=== PATIENT | female | born 1960 | race Caucasian/White ===

== ENCOUNTER → 2018-10-17 10:32 | Outpatient (CLI) | payer OTHER, SELFPAY ==
--- NOTE | 2018-10-17 10:36 | BI_ITS ---
MAMMOGRAPHY - BILATERAL SCREENING 3-D TRACEE SYNTHESIS REASON FOR EXAM: Female, 58 years old. Bilateral Screening 3-D tomosynthesis PERTINENT HISTORY: History of benign ultrasound-guided biopsy for fibroadenoma in 2017. 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 History of breast cancer in maternal grandmother. TECHNIQUE: 2-D mammograms and 3-D Tracee synthesis of the breast (s) were performed. CAD was performed. COMPARISON: March 23, 2017, December 04, 2014 FINDINGS: The breast composition is almost entirely fat. Scattered benign calcifications are stable.. No dense spiculated masses or suspicious microcalcifications are identified. No architectural distortion is identified. There is no skin thickening or retraction. There has been no significant change since the prior study. BI/SCREENING MAMM (CAD), BILAT IMPRESSION: No mammographic signs of malignancy. Routine yearly mammograms recommended. ASSESSMENT CATEGORY: BIRADS Category 2: Benign. A letter regarding these results will be sent to the patient by the facility within 30 days. FOLLOW UP RECOMMENDATION: Yearly follow up mammogram recommended. (A) Approximately 10% of breast cancers are not detected by mammography. A normal mammogram should not delay biopsy of a clinically suspicious abnormality. Electronically Signed: Chevy Alcaraz MD at 17:49 EDT , Service support ,
== END ==
PROVIDERS: Referring Provider Obstetrics & Gynecology; Visit Provider Obstetrics & Gynecology
DX: Z12.31 Encounter for screening mammogram for malignant neoplasm of breast (principal)
CPT/HCPCS: 77063; 77067

== ENCOUNTER → 2020-11-11 10:47 | Outpatient (CLI) | payer SELFPAY ==
--- NOTE | 2020-11-11 10:57 | BI_ITS ---
MAMMOGRAPHY - BILATERAL SCREENING REASON FOR EXAM: Female, 60 years old. Routine annual screening examination. PERTINENT HISTORY: Sister with breast cancer. TECHNIQUE: Digital bilateral breast tracee (3D mammographic acquisition) in CC and MLO projections. 2-D mediolateral oblique (MLO) and craniocaudad (CC) views of both breasts were obtained. CAD: Full Field Digital Mammography with Computer Added Detection was performed. COMPARISON: Comparison is made with prior study dated 10/17/2018 and 03/23/2017. FINDINGS: Breast Composition: The breasts are heterogeneously dense, which may obscure small masses. Focus of microcalcifications in the upper lateral aspect of the right breast. The patient will be recalled for additional views including magnification spot views. No other significant abnormalities are identified. BI/SCRN MAMM (CAD)W/TRACEE BILAT IMPRESSION: Focus of microcalcifications in the upper lateral aspect of the right breast as described. The patient will be recalled for additional views including magnification spot views. Recall Side: Right Breast ASSESSMENT CATEGORY: BIRADS Category 0: Incomplete. Need additional imaging evaluation. A letter regarding these results will be sent to the patient by the facility within 30 days. Approximately 10% of breast cancers are not detected by mammography. A normal mammogram should not delay biopsy of a clinically suspicious abnormality. [id number] Electronically Signed: Donny Phillip MD at 12:09 EDT , Service support ,
== END ==
PROVIDERS: PCP Family Medicine; Referring Provider Obstetrics & Gynecology; Visit Provider Obstetrics & Gynecology
DX: Z12.31 Encounter for screening mammogram for malignant neoplasm of breast (principal)
CPT/HCPCS: 77063; 77067

== ENCOUNTER → 2020-11-14 12:10 | Outpatient (CLI) | payer SELFPAY ==
--- NOTE | 2020-11-14 12:16 | BI_ITS ---
MAMMOGRAPHY - UNILATERAL DIAGNOSTIC: RIGHT BREAST REASON FOR EXAM: Female, 60 years old. Abnormal screening mammogram. Microcalcifications. PERTINENT HISTORY: TECHNIQUE: Magnification spot views of the right breast were obtained. CAD: Full Field Digital Mammography with Computer Added Detection was performed. COMPARISON: Comparison is made with prior mammogram dated 11/11/2020. FINDINGS: Breast Composition: The breasts are heterogeneously dense, which may obscure small masses. The cluster of microcalcifications are seen in the upper lateral aspect of the right breast. A biopsy is recommended. No other significant abnormalities are identified. BI/DIAG MAMM W/CAD, UNILAT IMPRESSION: Cluster of microcalcifications persist. Biopsy is recommended. ASSESSMENT CATEGORY: BIRADS Category 4: Suspicious - Biopsy Should Be Considered. A letter regarding these results will be sent to the patient by the facility within 30 days. Approximately 10% of breast cancers are not detected by mammography. A normal mammogram should not delay biopsy of a clinically suspicious abnormality. Electronically Signed: Donny Phillip MD at 12:58 EDT , Service support ,
== END ==
PROVIDERS: PCP Family Medicine; Referring Provider Obstetrics & Gynecology; Visit Provider Obstetrics & Gynecology
DX: R92.0 Mammographic microcalcification found on diagnostic imaging of breast (principal)
CPT/HCPCS: 77065

== ENCOUNTER → 2020-12-25 08:51 | Outpatient (CLI) | payer SELFPAY ==
[2020-11-28 12:58] VITALS: BMI 26.6
--- NOTE | 2020-12-25 07:15 | BRBX_PTH ---
PATIENT: MAYLIN KLEIN LOC: [facility] U#:[id number] AGE/SX: 64/F ROOM: RE12/25/[address]: Dr. Ian Escobar MD : 1960 BED: DIS: SPEC #: [id number] RECD: 12/25/20 10:07 STATUS: GEO KACY #: [id number] VAN: 12/25/20 07:[address]: Ian Escobar DEPT: SURGICAL PATHOLOGY RECD BY: Shyla Cook ENTERED: 12/25/20 11:08 SP TYPE: BREAST BX OTHR DR: Dr. Ace Simental MD Tissues: Right breast, NOS Procedures: Surgery Specimen Level IV HEADER OPERATION: Right stereotactic breast biopsy PRE-OP DIAGNOSIS: Right breast upper lateral microcalcifications TISSUE SUBMITTED: Right breast core tissue ISCHEMIC TIME: 1 minute FIXATION TIME: 10 hours MICROSCOPIC DIAGNOSIS Right breast, upper lateral, stereotactic core biopsy: Fibrocystic change with associated Banal microcalcifications. No evidence of malignancy. AM:leonora 12/26/2020 MICROSCOPIC DESCRIPTION Slides are reviewed. GROSS DESCRIPTION Received is one container labeled with the patient's name and not further designated. The specimen consists of multiple irregular fragments of dewitt-yellow soft tissue that in aggregate measure 3 x 3 x 0.2 cm. The specimen is totally submitted in two cassettes. / AM:leonora 12/25/20 TC:5 CPT: 43810
--- NOTE | 2020-12-25 09:31 | PCM.OPRPT ---
Problems Associated Problem List Diagnoses (1) Microcalcification of right breast on mammogram: Report of Operation Date of Procedure: 12/25/20 Pre-Operative Diagnosis: Microcalcifications of the right breast Post-Operative Diagnosis: Same Surgery/Procedure Performed:: Stereotactic guided core needle biopsy of the right breast with clip placement Specimen's removed: Right breast biopsy Description of Procedure: The patient was consented and then the patient was placed in the stereotactic table with right breast and the compression plate. [employer] views were obtained and the microcalcifications were centered. Stereotactic views were then obtained and the microcalcifications were localized. The skin was then prepped and injected with local anesthetic. A small yamileth in the skin was made with a scalpel. The needle was placed into the breast and fired. Stereotactic views were obtained to make sure that the needle was still in appropriate position. Core needle biopsies were then obtained and the specimen was x-rayed and did contain the microcalcifications. Next the clip was placed into the breast and the needle was removed. Stereotactic views were obtained to make sure that the clip was in adequate position. The incision was then closed with a Steri-Strip and bandage and the patient tolerated the procedure well.
== END ==
PROVIDERS: PCP Family Medicine; Referring Provider Surgery; Visit Provider Surgery
DX: N60.11 Diffuse cystic mastopathy of right breast (principal)
CPT/HCPCS: 19081; 88305; J7050; A4648

== ENCOUNTER → 2021-06-02 09:31 | Outpatient (CLI) | payer SELFPAY ==
--- NOTE | 2021-06-02 09:36 | BI_ITS ---
MAMMOGRAPHY - UNILATERAL DIAGNOSTIC: RIGHT BREAST REASON FOR EXAM: Female, 60 years old. Six-month follow-up for right breast biopsy. PERTINENT HISTORY: Sister with breast cancer. TECHNIQUE: Digital unilateral breast estefania (3D mammographic acquisition) in the CC and MLO projections. 2-D mediolateral oblique (MLO) and craniocaudad (CC) views of both breasts were obtained. CAD: Full Field Digital Mammography with Computer Added Detection was performed. COMPARISON: Comparison is made with prior mammogram dated 11/14/2020 and 11/11/2020. FINDINGS: Breast Composition: The breasts are heterogeneously dense, which may obscure small masses. There are no dominant masses or suspicious calcifications. A tissue clip marker is seen in the upper anterior slightly lateral aspect of the right breast at the biopsy site. There has been a decrease in the number of microcalcifications. No other significant abnormalities are identified. BI/DIAG MAMM W/CAD, UNILAT IMPRESSION: Status post biopsy of the microcalcifications in the upper lateral aspect of the right breast.. One year follow-up mammogram recommended. (A) ASSESSMENT CATEGORY: BIRADS Category 2: Benign. A letter regarding these results will be sent to the patient by the facility within 30 days. Approximately 10% of breast cancers are not detected by mammography. A normal mammogram should not delay biopsy of a clinically suspicious abnormality. Electronically Signed: Donny Phillip MD at 12:55 EDT , Service support ,
== END ==
PROVIDERS: PCP Family Medicine; Visit Provider Surgery
DX: R92.0 Mammographic microcalcification found on diagnostic imaging of breast (principal); Z80.3 Family history of malignant neoplasm of breast
CPT/HCPCS: 77061; 77065; G0279

== ENCOUNTER → 2022-09-06 | Outpatient (CLI) | payer SELFPAY ==
--- NOTE | 2022-09-06 13:37 | BI_ITS ---
MAMMOGRAPHY - BILATERAL SCREENING REASON FOR EXAM: Female, 62 years old. Routine annual screening examination. PERTINENT HISTORY: Sister with breast cancer. History of prior right stereotactic breast biopsy. TECHNIQUE: Digital bilateral breast tracee (3D mammographic acquisition) in the CC and MLO projections. 2-D mediolateral oblique (MLO) and craniocaudad (CC) views of both breasts were obtained. CAD: Full Field Digital Mammography with Computer Added Detection was performed. COMPARISON: Comparison is made with prior study dated 11/11/2020 and 11/14/2020. FINDINGS: Breast Composition: The breasts are heterogeneously dense, which may obscure small masses. There are no dominant masses or suspicious calcifications. A tissue clip marker is seen in the upper slightly lateral aspect of the right breast. The previously seen calcifications are not seen at this time. No other significant abnormalities are identified. There has been no significant change since the prior study. BI/SCRN MAMM (CAD)W/TRACEE BILAT IMPRESSION: Stable bilateral screening mammogram. Yearly follow-up mammogram recommended. (A) ASSESSMENT CATEGORY: BIRADS Category 2: Benign. A letter regarding these results will be sent to the patient by the facility within 30 days. Approximately 10% of breast cancers are not detected by mammography. A normal mammogram should not delay biopsy of a clinically suspicious abnormality. [id number] Electronically Signed: Donny Phillip MD at 14:45 EST ,
== END | disposition home or self-care (01) ==
LOC: OPBI 13:32
PROVIDERS: PCP Family Medicine; Referring Provider Obstetrics & Gynecology; Visit Provider Obstetrics & Gynecology
DX: Z12.31 Encounter for screening mammogram for malignant neoplasm of breast (principal)
CPT/HCPCS: 77063; 77067

== ENCOUNTER → 2024-06-06 | Outpatient (CLI) | payer SELFPAY ==
--- NOTE | 2024-06-06 10:12 | BI_ITS ---
MAMMOGRAPHY - BILATERAL SCREENING REASON FOR EXAM: Female, 63 years old. Routine annual screening examination. PERTINENT HISTORY: Sister with breast cancer. Prior right stereotactic breast biopsy. TECHNIQUE: Digital bilateral breast tracee (3D mammographic acquisition) in the CC and MLO projections. 2-D mediolateral oblique (MLO) and craniocaudad (CC) views of both breasts were obtained. CAD: Full Field Digital Mammography with Computer Added Detection was performed. COMPARISON: Comparison is made with prior study if every 2022 and November 14, 2020. FINDINGS: Breast Composition: The breasts are heterogeneously dense, which may obscure small masses. There are no dominant masses or suspicious calcifications. A tissue clip marker is once again seen in the upper slightly outer aspect of the right breast. No other significant abnormalities are identified. There has been no significant change since the prior study. BI/SCRN MAMM (CAD)W/TRACEE BILAT IMPRESSION: Stable bilateral screening mammogram. Yearly follow-up mammogram recommended. (A) ASSESSMENT CATEGORY: BIRADS Category 2: Benign. A letter regarding these results will be sent to the patient by the facility within 30 days. Approximately 10% of breast cancers are not detected by mammography. A normal mammogram should not delay biopsy of a clinically suspicious abnormality. [id number] Electronically Signed: Donny Phillip MD at 11:28 EST ,
== END | disposition home or self-care (01) ==
LOC: OPBI 10:08
PROVIDERS: PCP Family Medicine; Referring Provider Obstetrics & Gynecology; Visit Provider Obstetrics & Gynecology
DX: Z12.31 Encounter for screening mammogram for malignant neoplasm of breast (principal)
CPT/HCPCS: 77063; 77067

== ENCOUNTER → 2025-06-07 | Outpatient (CLI) | payer SELFPAY ==
--- NOTE | 2025-06-07 10:58 | BI_ITS ---
EXAM: SCRN MAMM (CAD)W/TRACEE BILAT DATE: 06/07/2025 CLINICAL HISTORY: F, Age 64 y/o , SCREEN TECHNIQUE: Procedure Code: [id number] Modality: MG Procedure: SCRN MAMM (CAD)W/TRACEE BILAT COMPARISON: Prior exam(s) dated 06/06/2024, 09/06/2022, 06/02/2021. FINDINGS: TISSUE DENSITY: The breasts are heterogeneously dense, which may obscure small masses. The mammogram demonstrates that the patient has dense breasts. Supplemental screening with whole breast ultrasound or MRI may be considered for further evaluation. Bilateral Breast Mammographic Findings: No significant masses, calcifications or other abnormalities are identified. BI/SCRN MAMM (CAD)W/TRACEE BILAT IMPRESSION: There is no mammographic evidence of malignancy. OVERALL FINAL ASSESSMENT BI-RADS 1: NEGATIVE. RECOMMENDATION: Routine annual follow-up in 1 Year Additional Recommendation none A letter with findings and recommendations will be mailed to the patient. Reading Location: [id number]
--- OUTSIDE RECORDS SUMMARY | 2025-06-07 12:06 | XMS RPT_ITS | CCD ---
Author Organization [facility] Care Team Providers Care Veneer Stacker Name Role Phone Unavailable Primary Care Provider UnavailDennis Rowland Attending Unavailable Ace Simental Primary Care Unavailable Dennis Anderson Referring Unavailable Ace Simental Primary Care Unavailable Dennis Anderson Referring Unavailable Dennis Anderson Attending Unavailable Allergies Allergy Classification Reported Allergen(s) Allergy Type Date of Onset Reaction(s) Facility (1 source) Cefuroxime Drug Allergy 1 PT UNSURE OF REACTION [facility] (1 source) Meperidine Drug Allergy 1 PT UNSURE OF REACTION [facility] (1 source) Morphine Drug Allergy 1 PT UNSURE OF REACTION [facility] (1 source) Penicillins Allergy to substance 1 PT UNSURE OF REACTION [facility] (1 source) Penicillins Propensity to adverse reactions 4 [facility] (1 source) Cefuroxime Drug Allergy 1 [facility] Repository (1 source) Meperidine Drug Allergy 1 [facility] (1 source) Morphine Drug Allergy 1 [facility] (1 source) Penicillins Drug allergy (disorder) 1 [facility] Repository Medications Current Medications Medication Drug Class(es) Dates Sig (Normalized) Sig (Original) calcium carbonate 1250 mg oral tablet (1 source) Start: 11-28-2020 take 500 mg by mouth once daily Calcium Carbonate Active 500 MG PO DAILY November 27, 2020 11:00pm cholecalciferol 0.05 mg oral tablet (1 source) Vitamin D Start: 11-28-2020 take 50 ug by mouth once daily Cholecalciferol (Vitamin D3) Active 50 MCG PO DAILY November 27, 2020 11:00pm doxycycline hyclate 100 mg oral capsule (1 source) Tetracycline-cl ass Drug Start: 06-04-2024 take 1 capsule by mouth twice daily at mealtime doxycycline (Vibramycin) 100 mg capsule Indications: Acute non-recurrent maxillary sinusitis Take one capsule (100mg) PO BID x7 days. Take with food 14 capsule 06/04/2024 Active Start: 06-04-2024 take 1 capsule by mo ut twice daily at mealtime doxycycline (Vibramycin) 100 mg capsule Indications: Acute non-recurrent maxillary sinusitis Take one capsule (100mg) PO BID x7 days. Take with food 14 capsule 06/04/2024 Active estradiol 0.1 mg/ml vaginal cream (1 source) Estrogen Start: 05-10-2024 estradiol (Estrace) 0.01 % (0.1 mg/gram) vaginal cream use 2 (TWO) grams VAGINALLY EVERY DAY for up to 2 (TWO) weeks DIRECTED 05/10/2024 Active montelukast 10 mg oral tablet (1 source) Leukotriene Receptor Antagonist Start: 03-28-2024 take 1 tablet by mouth in the morning montelukast (Singulair) 10 mg tablet Take 1 tablet by mouth early in the morning.. 03/28/2024 Active Multivitamin preparation (1 source) Start: 11-28-2020 take 1 tablet by mouth once daily Multivitamin Active 1 TABLET PO DAILY November 27, 2020 11:00pm 24 hr propranolol hydrochloride 80 mg extended release oral capsule (2 sources) beta-Adrenergic Kayli Start: 03-23-2024 take 1 capsule by mouth every twenty-four hours in the morning propranolol LA (Inderal LA) 80 mg 24 hr capsule Take 1 capsule by mouth early in the morning.. 03/23/2024 Active Start: 11-28-2020 take 80 mg by mouth once daily Propranolol Active 80 MG PO DAILY November 27, 2020 11:00pm Problems Problem Classification Problem Date Documented Date Episodic/Chronic Disorders of teeth and jaw (1 source) History of surgical procedure on mouth; Translations: [Other dental procedure status] 11-28-2020 Episodic Essential hypertension (1 source) Hypertensive disorder; Translations: [Essential (primary) hypertension] 11-28-2020 Chronic Nonmalignant breast conditions (2 sources) Mammographic microcalcification of right breast; Translations: [Mammographic microcalcification found on diagnostic imaging of breast] 11-28-2020 Episodic Other screening for suspected conditions (not mental disorders or infectious disease) (2 sources) Encounter for other screening for malignant neoplasm of breast; Translations: [Encounter for screening mammogram for malignant neoplasm of breast] Onset: 4 Episodic Other upper respiratory infections (1 source) Acute maxillary sinusitis; Translations: [Acute maxillary sinusitis, unspecified] 06-04-2024 Episodic Results Test Name Value Interpretation Reference Range Facil ity SCRN MAMM (CAD)W/TRACEE BILATo n 06-06-2024 SCRN MAMM (CAD)W/TRACEE BILAT [facility] Imaging Services [address], [place] [id number] SCRN MAMM (CAD)W/TRACEE BILAT MR#: [id number] Acct: [id number] Name: MIRTA MOHAMUD Rep #: [id number] : 1960 F 63 From: Donny day MD PCP: Dr. Ace Simental MD Status: [facility] Study: SCRN MAMM (CAD)W/TRACEE BILAT Date of Exam: 01/22 Exam# [id number] Ordering Dr: Dennis Anderson MD [id number] MAMMOGRAPHY - BILATERAL SCREENING REASON FOR EXAM: Female, 63 years old. Routine annual screening examination. PERTINENT HISTORY: Sister with breast cancer. Prior right stereotactic breast biopsy. TECHNIQUE: Digital bilateral breast tracee (3D mammographic acquisition) in the CC and MLO projections. 2-D mediolateral oblique (MLO) and craniocaudad (CC) views of both breasts were obtained. CAD: Full Field Digital Mammography with Computer Added Detection was performed. COMPARISON: Comparison is made with prior study if every 2022 and November 14, 2020. FINDINGS: Breast Composition: The breasts are heterogeneously dense, which may obscure small masses. There are no dominant masses or suspicious calcifications. A tissue clip marker is once again seen in the upper slightly outer aspect of the right breast. No other significant abnormalities are identified. There has been no significant change since the prior study. BI/SCRN MAMM (CAD)W/TRACEE BILAT IMPRESSION: Stable bilateral screening mammogram. Yearly follow-up mammogram recommended. (A) ASSESSMENT CATEGORY: BIRADS Category 2: Benign. A letter regarding these results will be sent to the patient by the facility within 30 days. Approximately 10% of breast cancers are not detected by mammography. A normal mammogram should not delay biopsy of a clinically suspicious abnormality. [id number] Electronically Signed: Donny Phillip MD at 11:28 EST , CC: Dr. Dennis Anderson MD; Dr. Ace Simental MD [employer] Board Certified Orthotist: Signed Normal [facility] 06-21-2016 Cholesterol [Mass/Vol] Ordering Provider: BARRY LAMB [facility] Otheron 06-21-2016 CONVERTED CLINICAL HISTORY OPERATIVE PROCEDURE: Left carpal tunnel release, Excision subcutaneous scalp mass x 2 CLINICAL INFORMATION: Subcutaneous scalp mass x 2, Bilateral CTS [facility] CONVERTED ELECTRONIC SIGNATURE MELISSA BROWN M.D., PATHOLOGIST (Electronic signature on file) Final Signed Out: 06/21/2016 16:48 [facility] CONVERTED FINAL DIAGNOSIS FINAL DIAGNOSIS: A) LEFT SUPERIOR SCALP MASS, EXCISION - PILAR CYST. B) LEFT PARIETAL SCALP MASS, EXCISION - PILAR CYST. [facility] CONVERTED GROSS DESCRIPTION GROSS DESCRIPTION: Received are two formalin-filled containers, each labeled with the patient's name. A) Sub Q mass left superior mass Specimen A designated sub Q mass, left superior mass, is a dewitt elliptical hair-bearing 1.7 x 0.7 cm ellipse of skin overlying a 0.7 cm in diameter white pliable nodule. The cut surface is dewitt to white. The specimen is serially sectioned and submitted in total in cassette A. B) Sub Q mass left parietal scalp Specimen B designated sub Q mass, left parietal scalp, is a dewitt, wrinkled, hair-bearing 2.3 x 0.8 cm ellipse of skin overlying a whit pliable 1.5 x 1.3 x 0.8 cm nodule. The content of the nodule is a dewitt to sahu-white pliable material. The specimen is serially sectioned and entirely submitted in cassette B. VIJAYA:[facility] 05-21-2016 Cholesterol [Mass/Vol] Ordering Provider: BARRY LAMB [facility]on 05-21-2016 CONVERTED CLINICAL HISTORY OPERATIVE PROCEDURE: Right carpal tunnel release CLINICAL INFORMATION: Bilateral CTS [facility] CONVERTED ELECTRONIC SIGNATURE MELISSA BROWN M.D., PATHOLOGIST (Electronic signature on file) Final Signed Out: 05/21/2016 16:24 [facility] CONVERTED FINAL DIAGNOSIS FINAL DIAGNOSIS: LESION OF RIGHT RING FINGER, EXCISION - FIBROUS CONNECTIVE TISSUE AND FIBROCARTILAGE WITH DEGENERATIVE CHANGES. FOCAL FIBROUS ACCENTUATION. [facility] CONVERTED GROSS DESCRIPTION GROSS DESCRIPTION: Right ring finger tendon sheath cyst Received in formalin labeled with the patient's name and designated right ring finger, tendon sheath cyst is a 0.6 x 0.6 x 0.1 cm pink-white pliable membranous portion of soft tissue which is submitted in total in one cassette. VIJAYA:[facility] Vital Signs Date Time Vital Sign Value Performing Clinician Facility 06-04-2024 11:[id number] Body temperature 97.2 [degF] Christiane Bonifaciobisi CAREER DEVELOPMENT COORDINATOR-PRESS SET UP Work Phone: [facility] 06-04-2024 11:13-0500 Body weight 77.11 kg Christiane Bonifaciobisi CAREER DEVELOPMENT COORDINATOR-PRESS SET UP Work Phone: [facility] 06-04-2024 11:13-0500 Diastolic blood pressure 87 mm[Hg] Christiane Salvador CAREER DEVELOPMENT COORDINATOR-PRESS SET UP Work Phone: [facility] 06-04-2024 11:13-0500 Heart rate 68 /min Christiane Salvador CAREER DEVELOPMENT COORDINATOR-PRESS SET UP Work Phone: [facility] 06-04-2024 11:13-0500 Respiratory rate 15 /min Christiane Salvador CAREER DEVELOPMENT COORDINATOR-PRESS SET UP Work Phone: [facility] 06-04-2024 11:13-0500 SaO2% (BldA) [Mass fraction] 96 % Christiane Salvador APRN-PRESS SET UP Work Phone: [facility] 06-04-2024 11:13-0500 Systolic blood pressure 152 mm[Hg] Christiane Salvador APRN-PRESS SET UP Work Phone: [facility] Encounters Encounter Date Encounter Type Care Provider Facility Start: 06-07-2025 ambulatory Ace Ramos ty:[facility] Start: 06-06-2024 End: 06-06-2024 ambulatory Dennis Anderson Facility:[facility] Start: 06-04-2024 End: 06-04-2024 Office outpatient new 45 minutes Christiane Salvador APRN-PRESS SET UP Work Phone: [facility] Comment on above: Acute non-recurrent maxillary sinusitis (Primary Dx) Start: 09-06-2022 End: 09-06-2022 ambulatory [facility] Work Phone: Start: 09-06-2022 End: 09-06-2022 Patient encounter procedure [facility] Start: 05-19-2016 End: 05-19-2016 Patient encounter procedure Barry Diego Jorge Work Phone: [facility] Start: 05-19-2016 Results Only Barry Johnathon Pap as Work Phone: [facility] Procedures Date Procedure Procedure Detail Performing Clinician Start: 09-06-2022 Screening mammography Start: 06-16-2016 CONVERTED SURGICAL PATHOLOGY Barry H Jorge Work Phone: Start: 05-19-2016 CONVERTED SURGICAL PATHOLOGY Barry H Jorge Work Phone: Plan of Treatment Date Care Activity Detail Author Start: 2035 RSV High Risk: (Elde rly (60+) or Population) (1 - 1-dose 75+ series) RSV High Risk: (Elderly (60+) or Population) (1 - 1-dose 75+ series) [facility] Start: 04-01-2024 COVID-19 Vaccine ( season) COVID-19 Vaccine ( season) [facility] Start: 04-01-2024 Influenza vaccination Influenza Vacc ine (#1) [facility] Start: 04-01-2020 Influenza vaccination INFLUENZA (#1) [facility] Start: 2010 SHINGRIX VACCINE (1 of 2) SHINGRIX VACCINE (1 of 2) [facility] Start: 2010 Tuberculosis screening [facility] PALMER CANCER SCREENING,SEE MODIFIER [facility] Start: 2010 Zoster Vaccines (1 of 2) Zoste r Vaccines (1 of 2) [facility] Start: 2005 DIABETES SCREEN DIABETES SCREEN [facility] Start: 2005 LIPID SCREEN LIPID SCREEN [facility] Start: 2000 Mammography MAMMOGRAM [facility] Start: 1990 HPV TESTING HPV TESTING [facility] Start: 1982 DTaP/Tdap/Td Vaccine s (1 - Tdap) DTaP/Tdap/Td Vaccines (1 - Tdap) [facility] Start: 1981 PAP TESTING PAP TESTING [facility] Start: 1981 Screening for malign ant neoplasm of cervix [facility] Start: 1979 Urine microalbumin profile DTAP,TDAP,TD (1 - Tdap) [facility] Start: 1978 HEPATITIS C SCREENING HEPATITIS C SC REENING [facility] Start: 1978 HIV SCREENING HIV SCREENING [facility] Start: 1961 MMR Vaccines (1 of 1 - Standard series) MMR Vaccines (1 of 1 - Standard series) [facility] Start: 1960 Lipid panel Lipid Panel [facility] Start: 1960 Screening for malign ant neoplasm of colon [facility] Immunizations Immunization Date Immunization Notes Care Provider Miguel marin 06-12-2020 influenza virus vaccine, unspecified formulation Christiane VACA Work Phone: [facility] Work Phone: Payers Date Payer Category Payer Self-pay [id number] 2024 Unknown [id number] Unknown [facility] [id number] Unknown [id number] Unknown [id number] Social History Date Type Detail [facility] Start: 1960 Sex Assigned At Not on file [facility] Start: 11-28-2020 [facility] Start: 1960 Sex Assigned At Female [facility] Start: 06-04-2024 [facility] Work Phone: Start: 06-04-2024 Tobacco use and exposure Smokeless tobacco non-user [facility] Work Phone: Gender identity Not on file [facility] Work Phone: History of Present illness Narrative 06-04-2024 Christiane SalvadorANTOINE-PRESS SET UP - 06/04/2024 11:00 AM EST Note Date & Type Note Facility 06-04-2024 History of Present illness Narrative Subjective Patient ID: Mirta Mohamud is a 63 y.o. female. They present today with a chief complaint of sinus infection (Pressure in head, green mucus x unknown time, weekend got worse). History of Present Illness Patient is a 63 y/o female c/o nasal congestion/drainage, sinus pressure x2 weeks. Denies fever, chills, bodyaches, lethargy, weakness, chest pain/tightness/pressure, SOB, wheezing, N/V/D, ABD pain. No OTC medication reported to be taken. Past Medical History Allergies as of 06/04/2024 - Reviewed 06/04/2024 Allergen Reaction Noted Penicillins Hives 06/04/2024 (Not in a hospital admission) No past medical history on file. No past surgical history on file. reports that she has never smoked. She has never used smokeless tobacco. Review of Systems Review of Systems Constitutional: Negative. HENT: Nasal congestion/drainage, sinus pressure Eyes: Negative. Respiratory: Negative. Cardiovascular: Negative. Gastrointestinal: Negative. Endocrine: Negative. Genitourinary: Negative. Musculoskeletal: Negative. Skin: Negative. Allergic/Immunologic: Negative. Neurological: Negative. Hematological: Negative. Psychiatric/Behavioral: Negative. Objective Vitals: 06/04/24 1113 BP: 152/87 Pulse: 68 Resp: 15 Temp: 36.2 C (97.2 F) SpO2: 96% Weight: 77.1 kg (170 lb) No LMP recorded. Patient has had a hysterectomy. Physical Exam Constitutional: Comments: Patient A/O x4, LOC 5, calm and cooperative. Patient self-ambulatory to treatment area and is in no acute distress. HENT: Head: Normocephalic and atraumatic. Right Ear: Tympanic membrane normal. Left Ear: Tympanic membrane normal. Nose: Comments: Bilateral inferior turbinates edematous and erythematous with moderate amounts of purulent drainage from nares. Bilateral maxillary sinus pressure to palpation Mouth/Throat: Mouth: Mucous membranes are moist. Pharynx: Oropharynx is clear. Eyes: Extraocular Movements: Extraocular movements intact. Conjunctiva/sclera: Conjunctivae normal. Pupils: Pupils are equal, round, and reactive to light. Cardiovascular: Rate and Rhythm: Normal rate and regular rhythm. Pulses: Normal pulses. Heart sounds: Normal heart sounds. Pulmonary: Effort: Pulmonary effort is normal. Breath sounds: Normal breath sounds. Abdominal: General: Abdomen is flat. Palpations: Abdomen is soft. Musculoskeletal: General: Normal range of motion. Cervical back: Neck supple. Skin: General: Skin is warm and dry. Capillary Refill: Capillary refill takes less than 2 seconds. Neurological: General: No focal deficit present. Mental Status: She is oriented to person, place, and time. Psychiatric: Mood and Affect: Mood normal. Behavior: Behavior normal. Procedures Point of Care Test & Imaging Results from this visit No results found for this visit on 06/04/24. No results found. Diagnostic study results (if any) were reviewed by LIO Linn. Assessment/Plan Allergies, medications, history, and pertinent labs/EKGs/Imaging reviewed by LIO Linn. Medical Decision Making At time of discharge, patient was clinically well-appearing and appropriate for outpatient management. The patient/parent/guardian was educated regarding diagnosis, supportive care, OTC and Rx medications. The patient/parent/guardian was given the opportunity to ask questions prior to discharge. They verbalized understanding of discussion of treatment plan, expected course of illness and/or injury, indications on when to return to , when to seek further evaluation in ED/call 911, and the need to follow up with PCP and/or specialist as referred. Patient/parent/guardian was provided with work/school documentation if requested. Patient stable upon discharge. Orders and Diagnoses There are no diagnoses linked to this encounter. Medical Admin Record Patient disposition: Home documented in this encounter [facility] Work Phone: Evaluation note Note Date & Type Note Facility Evaluation note No assessment information availa [facility] Work Phone: Evaluation note Note Date & Type Note Facility Evaluation note Diagnosis Acute non-recurrent maxillary sinusitis- Primary documented in this encounter [facility] Work Phone: Chief Complaint and Reason for Visit Chief Complaint SCREENING Family History No Family History Records Found Relationship Condition Age at Onset Recorded Date/T david mother Hypertension Unknown Coronary artery disease Unknown Malignant neoplasm Unknown father Malignant neoplasm Unknown Malignant neoplasm of colon Unknown sister Malignant neoplasm of breast Unknown Summary Purpose Advance Directives No Advanced Directives Records Found Additional Source Comments Source Comments (unrecognize d section and content) In the event this informatio n is protected by the Federal Confidentiality of Alcohol and Drug Abuse Patient Records regulations: The Federal rules restrict any use of the information to criminally investigate or prosecute any alcohol or drug abuse patient.[facility] Care Teams (unrecognized sec tion and content) Team Status: Active Member Role Status Dates No Primary Care Physician Family Provider Active Dr. Ace Simental MD Primary Care Provider Active Team Status: Inactive Member Role Status Dates Dr. Ace Simental MD Primary Care Provider Active Dr. Ron Hutson MD Attending Provider, Referring Pr ovider Active Goals (unrecognized section and content) Goals may be documented in a n alternate section INFORMATION SOURCE (unrecogn ized section and content) DATE CREATED AUTHOR 06/02/2025 [facility] FOR RECORDS PERTAINING TO PATIENTS WHO ARE OR HAVE BEEN ENROLLED IN A CHEMICAL DEPENDENCY/SUBSTANCEABUSE PROGRAM, SOME INFORMATION MAY BE OMITTED. This clinical summary was aggregated from multiple sources. Caution should be exercised in using it in the provision of clinical care. This summary normalizes information from multiple sources, and as a consequence, information in this document may materially change the coding, format and clinical context of patient data. In addition, data may be omitted in some cases. CLINICAL DECISIONS SHOULD BE BASED ON THE PRIMARY CLINICAL RECORDS. [email or web address] [facility]. provides no warranty or guarantee of the accuracy or completeness of information in this document.
== END | disposition home or self-care (01) ==
LOC: OPBI 10:56
PROVIDERS: PCP Family Medicine; Referring Provider Obstetrics & Gynecology; Visit Provider Obstetrics & Gynecology
DX: Z12.31 Encounter for screening mammogram for malignant neoplasm of breast (principal)
CPT/HCPCS: 77063; 77067